=== PATIENT | male | born 1990 | race Two or more races ===

== ENCOUNTER 2023-11-03 18:51 | Inpatient (IN) | payer OTHER ==
[2023-11-03] MEDS ORDERED: Acetaminophen 325 MG TAB PO PRN (20:07)
[2023-11-03 20:44] VITALS: BMI 23.1
[2023-11-03] MEDS ORDERED: Calcium Carbonate + Vit D 250 MG TAB PO SCH (21:00)
[2023-11-03] MEDS ORDERED: Calcium Carbonate 600 MG + Vit D TAB PO SCH ×2 (21:00→21:45)
[2023-11-03] MEDS: Baclofen 10 MG TAB PO SCH (21:28)
[2023-11-03] MEDS: Sodium Chloride 0.9% 1,000 ML IV SCH (21:29)
[2023-11-04 03:58] LABS: Bacteria/HPF None Seen HPF (None Seen); Bilirubin Negative (Negative); Blood, Urine Trace (Negative); CAUTI Indications for Culture Alt mental st,lethar; Clarity Clear (Clear); Glucose, Urine (Dipstick) Normal (Negative); Ketone, Urine Negative (Negative); Leukocyte Negative Leu/uL (Negative); Nitrite Negative (Negative); Protein, Urine (Dipstick) Negative (Neg-Trace); RBC/HPF 0-3 HPF (0-3); Specific Gravity, Urine 1.018 (1.002-1.036); Squamous Epithelial None Seen HPF (0-3); Urobilinogen Normal mg/dL (Less than 2); WBC/HPF 0-3 HPF (0-3); pH, Urine 5.5 (5.0-9.0)
[2023-11-04 03:59] LABS: Urine Culture Reflex No No
[2023-11-04] MEDS: Sodium Chloride 0.9% 1,000 ML IV SCH (05:23)
[2023-11-04 08:05] LABS: Hematocrit 36.9 % (42.0-52.0); Hemoglobin 12.4 g/dL (14.0-18.0); Manual Diff?? YES; Mean Corpuscular HGB CONC 33.6 g/dL (32.0-36.0); Mean Corpuscular Hemoglobin 30.1 pg (27.0-31.0); Mean Corpuscular Volume 89.6 fl (78.0-98.0); Mean Platelet Volume 10.1 fL (7.4-10.4); Platelet Count 176 10x3/uL (130-400); RBC Distribution Width 12.5 % (11.5-14.5); Red Blood Cell (RBC) Count 4.12 mill/uL (4.70-6.10); White Blood Cell (WBC) Count 3.5 10x3/uL (4.8-10.8)
[2023-11-04 08:15] LABS: Delete Auto Diff?? YES
[2023-11-04 08:32] LABS: ALT (SGPT) 18 U/L (8-55); AST (SGOT) 47 U/L (5-34); Albumin 3.3 g/dL (3.5-5.0); Alkaline Phosphatase 38 U/L (40-110); Anion Gap 12 mmol/L (10-20); BUN (Urea Nitrogen) 11 mg/dL (8.9-20.6); Bilirubin, Total 0.3 mg/dL (0.2-1.2); CK (CPK) 2337 U/L (30-200); Calc. Creatinine Clearance 104 mL/min (70-130); Calcium 8.1 mg/dL (7.8-10.44); Carbon Dioxide 23 mmol/L (22-29); Chloride 106 mmol/L (98-107); Estimated GFR 106; Globulin 3.1 g/dL (2.4-3.5); Glucose 155 mg/dL (70-105); Potassium 3.5 mmol/L (3.5-5.1); Protein, Total 6.4 g/dL (6.0-8.3); Sodium 137 mmol/L (136-145)
[2023-11-04] MEDS: Baclofen 10 MG TAB PO SCH ×2 (08:35→20:32)
[2023-11-04] MEDS: Calcium Carbonate 600 MG + Vit D TAB PO SCH ×2 (08:35→20:32)
[2023-11-04] MEDS: Cyanocobalamin (Vitamin B-12) 1,000 MCG TAB PO SCH (08:35)
[2023-11-04] MEDS ORDERED: FLU VACC QS2023-24(6MOS UP)/PF 60 MCG/0.5 ML SYRINGE IM ONE (09:00)
[2023-11-04 09:26] LABS: Band 8 % (5-11); CellaVision Operator ID LAB.CMB; Large Platelets 11.1 % (0-5); Lymphocytes 15 % (21-51); Monocytes 21 % (0-10); Neutrophil 54 % (42-75); Nucleated RBC (Manual Ct) 1 % (0); Platelet Adequacy Comment Platelets Decreased; Polychromasia SLIGHT = 2-3 cells HPF (0-2); Reactive Lymphocytes 2 % (0-10); Total Cell Count 117
[2023-11-04] MEDS ORDERED: Sodium Chloride 0.9% 1,000 ML IV SCH (09:28)
[2023-11-04] MEDS: Lactated Ringer's 1,000 ML IV SCH ×2 (11:39→21:16)
[2023-11-04] MEDS ORDERED: Magnevist 469MG/ML 20 ML VIAL ONE (13:16)
[2023-11-05] MEDS: Lactated Ringer's 1,000 ML IV SCH ×5 (01:07→23:17)
[2023-11-05 05:43] LABS: #Monocytes 0.7 thou/uL (0.11-0.59); %Basophils 0.3 % (0.0-1.0); %Eosinophils 1.1 % (0.0-10.0); %Lymphocytes 25.4 % (21.0-51.0); %Monocytes 18.3 % (0.0-10.0); %Neutrophils 54.9 % (42.0-75.0); Hematocrit 37.2 % (42.0-52.0); Hemoglobin 12.4 g/dL (14.0-18.0); Mean Corpuscular HGB CONC 33.3 g/dL (32.0-36.0); Mean Corpuscular Hemoglobin 30.1 pg (27.0-31.0); Mean Corpuscular Volume 90.3 fl (78.0-98.0); Platelet Count 159 10x3/uL (130-400); RBC Distribution Width 12.4 % (11.5-14.5); Red Blood Cell (RBC) Count 4.12 mill/uL (4.70-6.10); White Blood Cell (WBC) Count 3.7 10x3/uL (4.8-10.8)
[2023-11-05 06:33] LABS: ALT (SGPT) 18 U/L (8-55); AST (SGOT) 44 U/L (5-34); Albumin 3.5 g/dL (3.5-5.0); Alkaline Phosphatase 37 U/L (40-110); Anion Gap 10 mmol/L (10-20); BUN (Urea Nitrogen) 11 mg/dL (8.9-20.6); Bilirubin, Total 0.3 mg/dL (0.2-1.2); CK (CPK) 1978 U/L (30-200); Calc. Creatinine Clearance 105 mL/min (70-130); Calcium 8.3 mg/dL (7.8-10.44); Carbon Dioxide 23 mmol/L (22-29); Chloride 107 mmol/L (98-107); Estimated GFR 108; Glucose 84 mg/dL (70-105); Potassium 3.8 mmol/L (3.5-5.1); Protein, Total 6.5 g/dL (6.0-8.3); Sodium 136 mmol/L (136-145)
[2023-11-05] MEDS: Calcium Carbonate 600 MG + Vit D TAB PO SCH ×2 (08:50→20:48)
[2023-11-05] MEDS: Cyanocobalamin (Vitamin B-12) 1,000 MCG TAB PO SCH (08:50)
[2023-11-05] MEDS: Baclofen 10 MG TAB PO SCH ×2 (08:50→20:48)
[2023-11-06 04:50] LABS: #Eosinphils 0.1 thou/uL (0.0-0.7); #Monocytes 0.5 thou/uL (0.11-0.59); #Neutrophils 1.5 thou/uL (1.40-6.50); %Basophils 0.3 % (0.0-1.0); %Monocytes 15.6 % (0.0-10.0); %Neutrophils 44.8 % (42.0-75.0); Hematocrit 37.7 % (42.0-52.0); Hemoglobin 12.5 g/dL (14.0-18.0); Mean Corpuscular HGB CONC 33.2 g/dL (32.0-36.0); Mean Corpuscular Hemoglobin 29.7 pg (27.0-31.0); Mean Corpuscular Volume 89.5 fl (78.0-98.0); Platelet Count 172 10x3/uL (130-400); RBC Distribution Width 12.4 % (11.5-14.5); Red Blood Cell (RBC) Count 4.21 mill/uL (4.70-6.10); White Blood Cell (WBC) Count 3.3 10x3/uL (4.8-10.8)
[2023-11-06 05:16] LABS: ALT (SGPT) 18 U/L (8-55); AST (SGOT) 42 U/L (5-34); Albumin 3.4 g/dL (3.5-5.0); Alkaline Phosphatase 38 U/L (40-110); Anion Gap 13 mmol/L (10-20); BUN (Urea Nitrogen) 10 mg/dL (8.9-20.6); Bilirubin, Total 0.3 mg/dL (0.2-1.2); Calc. Creatinine Clearance 109 mL/min (70-130); Calcium 8.4 mg/dL (7.8-10.44); Carbon Dioxide 24 mmol/L (22-29); Chloride 107 mmol/L (98-107); Estimated GFR 113; Globulin 3.1 g/dL (2.4-3.5); Glucose 98 mg/dL (70-105); Potassium 3.9 mmol/L (3.5-5.1); Protein, Total 6.5 g/dL (6.0-8.3); Sodium 140 mmol/L (136-145)
[2023-11-06] MEDS: Cyanocobalamin (Vitamin B-12) 1,000 MCG TAB PO SCH (08:06)
[2023-11-06] MEDS: Calcium Carbonate 600 MG + Vit D TAB PO SCH (08:06)
[2023-11-06] MEDS: Baclofen 10 MG TAB PO SCH (08:06)
[2023-11-06] MEDS: Lactated Ringer's 1,000 ML IV SCH (08:11)
[2023-11-06 14:57] VITALS: BP 126/77; TEMP 98.4
== END 2023-11-06 14:44 | DRG 558 ==
LOC: T4-B 19:20 → INTOOBSV 19:20 → OBSVTOIN 11-06 11:48
PROVIDERS: ADMIT Family Medicine; ATTEND Family Medicine
DX: M62.82 Rhabdomyolysis (principal); G35 Multiple sclerosis; D64.9 Anemia, unspecified; Z79.899 Other long term (current) drug therapy; D72.819 Decreased white blood cell count, unspecified
CPT/HCPCS: 36415; 70553; 71045; 72158; 80053; 81001; 82550; 85025; A9579; G0378; J7050; J7120